=== PATIENT | female | born 1945 | race Two or more races ===

== ENCOUNTER 2020-03-11 13:35 | Outpatient (CLI) | payer MEDICARE, OTHER ==
[2020-03-11] MEDS ORDERED: FURO40TA5 PO (15:57)
[2020-03-11] MEDS ORDERED: INSU100V SQ (15:57)
[2020-03-11] MEDS ORDERED: LOSA100T31 PO (15:57)
[2020-03-11] MEDS ORDERED: AMLO5TAB9 PO (15:57)
[2020-03-11] MEDS ORDERED: NPH,100V SQ ×2 (15:57)
[2020-03-11] MEDS ORDERED: ASPI-1169 PO (15:57)
[2020-03-17] MEDS ORDERED: CEFT2PIG IV (11:50)
== END 2020-03-11 23:59 | disposition home or self-care (01) ==
LOC: WOU 13:35
PROVIDERS: ATTEND Podiatrist Foot & Ankle Surgery
DX: E11.621 Type 2 diabetes mellitus with foot ulcer (principal); L97.513 Non-pressure chronic ulcer of other part of right foot with necrosis of muscle; E11.42 Type 2 diabetes mellitus with diabetic polyneuropathy; E11.51 Type 2 diabetes mellitus with diabetic peripheral angiopathy without gangrene; E11.69 Type 2 diabetes mellitus with other specified complication; M86.171 Other acute osteomyelitis, right ankle and foot; Z79.4 Long term (current) use of insulin; Z79.82 Long term (current) use of aspirin
CPT/HCPCS: 11043

== ENCOUNTER 2020-03-11 15:07 | Inpatient (IN) | payer MEDICARE, OTHER ==
[~2020-03-11] VITALS: Ht 154.9 cm; Wt 62.6 kg
[2020-03-11] MEDS ORDERED: VANCOMYCIN 1 GM in IV D5W 250 ML IV ONE (15:30)
[2020-03-11] MEDS ORDERED: PIPERACILLIN /TAZOBACTAM 3.375 G in IV D5W 50 ML IV ONE (15:30)
--- NOTE | 2020-03-11 15:36 | NUR ---
line started on r ac g20, blood and cultures drawn from line and sent to lab
[2020-03-11 15:41] LABS: BASOPHILS % (AUTO) 0.1 % (0.0-2.0); HEMATOCRIT 30 % (33-45); HEMOGLOBIN 9.9 g/dL (11.5-14.8); LYMPHOCYTES # (AUTO) 1.9 /CMM (0.8-4.8); LYMPHOCYTES % (AUTO) 17.1 % (20.0-44.0); MEAN CORPUSCULAR HGB CONC 33 g/dl (31.0-36.0); MEAN CORPUSCULAR VOLUME 94 fL (82-100); MONOCYTES # (AUTO) 0.8 /CMM (0.1-1.30); MONOCYTES % (AUTO) 6.7 % (2.0-12.0); NEUTROPHILS # (AUTO) 8.4 /CMM (1.8-8.9); NEUTROPHILS % (AUTO) 75.1 % (43.0-81.0); PLATELET COUNT (AUTO) 564 /CMM (150-450); RED BLOOD CELL COUNT(AUTO) 3.21 MIL/uL (4.0-5.2); WHITE BLOOD COUNT (AUTO) 11.2 K/uL (4.3-11.0)
[2020-03-11 15:55] LABS: ALANINE AMINOTRANSFERASE 20 U/L (12-78); ALBUMIN 3.5 g/dL (3.4-5.0); ALKALINE PHOSPHATASE 147 U/L (46-116); ASPARTATE AMINOTRANSFERASE 15 U/L (15-37); BILIRUBIN,TOTAL 0.2 mg/dL (0.2-1.0); CALCIUM, SERUM 9.5 mg/dL (8.5-10.1); CARBON DIOXIDE 24 mmol/L (21-32); CHLORIDE 98 mmol/L (98-107); GLUCOSE 152 mg/dL (74-106); SODIUM SERUM 134 mmol/L (136-145); TOTAL PROTEIN, SERUM 9.7 g/dL (6.4-8.2); UREA NITROGEN, BLOOD 57 mg/dL (7-18)
[2020-03-11] MEDS ORDERED: LOSA100T31 PO (15:57)
[2020-03-11] MEDS ORDERED: NPH,100V SQ ×2 (15:57)
[2020-03-11] MEDS ORDERED: ASPI-1169 PO (15:57)
[2020-03-11] MEDS ORDERED: FURO40TA5 PO (15:57)
[2020-03-11] MEDS ORDERED: AMLO5TAB9 PO (15:57)
[2020-03-11] MEDS ORDERED: INSU100V SQ (15:57)
--- NOTE | 2020-03-11 16:52 | NUR ---
CALLED NURSING SUP FOR M/S BED.
[2020-03-11] MEDS ORDERED: HYDROCODONE/APAP 5/325MG 1 EACH TABLET PO PRN (17:30)
[2020-03-11] MEDS ORDERED: ACETAMINOPHEN 325 MG TABLET PO PRN (17:30)
[2020-03-11] MEDS ORDERED: DEXTROSE 50%-WATER 50 ML DISP.SYRIN IV PRN (17:30)
[2020-03-11] MEDS ORDERED: HYDROCODONE/APAP 10/325MG 1 EA TABLET PO PRN (17:30)
[2020-03-11] MEDS ORDERED: MAG HYDROX/AL HYDROX/SIMETH 30 ML UDC PO PRN (17:30)
[2020-03-11] MEDS ORDERED: ONDANSETRON HCL/PF 4 MG/2 ML VIAL IVP PRN (17:30)
[2020-03-11] MEDS ORDERED: Z GUARD REMEDY 2 OZ OINT TP PRN (17:30)
[2020-03-11] MEDS ORDERED: PIPERACILLIN /TAZOBACTAM 3.375 G in IV D5W 50 ML IV SCH (18:00)
--- NOTE | 2020-03-11 18:12 | NUR ---
REPORT GIVEN TO MS RN FOR CONTINUITY OF CARE
[2020-03-11] MEDS ORDERED: FEE PK DOSING 1 MIN EA MC ONE (18:23)
--- NOTE | 2020-03-11 18:31 | NUR ---
MS FOOD SUPERVISOR NOTES Received Patient via [facility] at this time. Patient ambulatory. Patient in stable condition. VS stable with no acute distress. Breathing even and unlabored on room air with no respiratory distress. Denies pain. No signs and symptoms of pain at this time. 20g PIV on RAC clean, intact, patent and flushing well with NS infusing at 50ml/hr. Safety precautions in place. Bed locked and set to lowest position with side rails x 2 up. All needs rendered at this time. Call light within reach. Will continue to monitor.
[2020-03-11] MEDS: IV NS 0.9% 1,000 ML IV PRN (19:01)
--- NOTE | 2020-03-11 19:10 | NUR ---
MS RN NOTES received pt in bed awake and able to make needs known. pt a/o x3 and Czech speaking. respirations even and unlabored with no s/s of acute distress or sob noted. no complaints of pain at this time. safety measures in place with bed in lowest locked position with side rails up x2. call light within reach. will continue to monitor.
--- NOTE | 2020-03-11 19:10 | NUR ---
MS RN NOTES RECEIVED PT IN BED AWAKE AND ABLE TO MAKE NEEDS KNOWN. PT A/OX Patient resting in bed. A/O x 4, Zambian speaking. Patient in stable condition. VS stable with no acute distress. Breathing even and unlabored on room air with no respiratory distress. Denies pain. No signs and symptoms of pain at this time. 20g PIV on RAC clean, intact, patent and flushing well with NS infusing at 50ml/hr. Safety precautions in place. Bed locked and set to lowest position with side rails x 2 up. All needs rendered at this time. Call light within reach. Will endorse to oncoming shift to complete admission.
--- NOTE | 2020-03-11 19:32 | NUR ---
MS RN CLOSING NOTES Patient resting in bed. A/O x 4, Canadian speaking. Patient in stable condition. VS stable with no acute distress. Breathing even and unlabored on room air with no respiratory distress. Denies pain. No signs and symptoms of pain at this time. 20g PIV on RAC clean, intact, patent and flushing well with NS infusing at 50ml/hr. Safety precautions in place. Bed locked and set to lowest position with side rails x 2 up. All needs rendered at this time. Call light within reach. Will endorse to oncoming shift to complete admission.
[2020-03-11 20:00] VITALS: BP 159/73
--- NOTE | 2020-03-11 20:35 | NUR ---
ms rn notes pt left unit with radiology.
--- NOTE | 2020-03-11 21:20 | NUR ---
ms rn notes pt back from radiology.
[2020-03-11] MEDS: CEFEPIME 1 GM in IV D5W 50 ML IV SCH (21:42)
[2020-03-11] MEDS: INSULIN REGULAR, HUMAN 100 UNIT/ML 3 ML VIAL SQ PRN (22:56)
[2020-03-11] MEDS ORDERED: PIPERACILLIN /TAZOBACTAM 2.25 G in IV D5W 50 ML IV SCH (23:00)
[2020-03-11] MEDS: BLOOD SUGAR DIAGNOSTIC 1 EACH STRIP IN SCH (23:10)
[2020-03-12 06:29] LABS: BASOPHILS % (AUTO) 0.4 % (0.0-2.0); EOSINOPHILS % (AUTO) 2.1 % (0.0-6.0); HEMATOCRIT 27 % (33-45); HEMOGLOBIN 9.3 g/dL (11.5-14.8); LYMPHOCYTES # (AUTO) 2.1 /CMM (0.8-4.8); LYMPHOCYTES % (AUTO) 20.6 % (20.0-44.0); MEAN CORPUSCULAR HGB CONC 34 g/dl (31.0-36.0); MEAN CORPUSCULAR VOLUME 93 fL (82-100); MONOCYTES # (AUTO) 0.9 /CMM (0.1-1.30); NEUTROPHILS # (AUTO) 6.8 /CMM (1.8-8.9); NEUTROPHILS % (AUTO) 67.9 % (43.0-81.0); PLATELET COUNT (AUTO) 523 /CMM (150-450); RED BLOOD CELL COUNT(AUTO) 2.89 MIL/uL (4.0-5.2)
[2020-03-12 06:42] LABS: CALCIUM, SERUM 9.3 mg/dL (8.5-10.1); CARBON DIOXIDE 24 mmol/L (21-32); CHLORIDE 100 mmol/L (98-107); CHOLESTEROL 142 mg/dL (<200); CREATININE 2.2 mg/dL (0.6-1.3); GLUCOSE 87 mg/dL (74-106); HDL CHOLESTEROL 35 mg/dL (40-60); LDL 90 mg/dL (0-99); MAGNESIUM 2.4 mg/dL (1.8-2.4); PHOSPHORUS 4.7 mg/dL (2.5-4.9); POTASSIUM 4.4 mmol/L (3.5-5.1); SODIUM SERUM 136 mmol/L (136-145); THYROID STIMULATING HORMONE 2.703 uIU/mL (0.358-3.74); TRIGLYCERIDES 114 mg/dL (30-150); UREA NITROGEN, BLOOD 53 mg/dL (7-18)
--- NOTE | 2020-03-12 07:36 | NUR ---
MS RN NOTES pt in bed awake and able to make needs known. pt a/o x3 and Yoruba speaking. respirations even and unlabored with no s/s of acute distress or sob noted throuhgout shift. pt kept clean, dry, and comfortable. no complaints of pain at this time. safety measures in place with bed in lowest locked position with side rails up x2. call light within reach. will endorse to oncoming nurse for cecy.
[2020-03-12] MEDS: BLOOD SUGAR DIAGNOSTIC 1 EACH STRIP IN SCH ×4 (07:46→22:35)
--- NOTE | 2020-03-12 08:00 | NUR ---
MS RN- OPENING NOTES RECEIVED PATIENT FROM MATRIX PLATER NURSE IN BED, AWAKE, CONSCIOUS, COOPERATIVE, AMBULATORY, NO SIGNS OR RESPIRATORY DISTRESS, IVF AT RIGHT AC NS AT 50 ML/HR INGUSING WELL, NO SIGNS OF INFILTRATION AND REDNESS. SKIN INTEGRITY IS INTACT.
[2020-03-12 08:07] VITALS: BP 108/60
[2020-03-12] MEDS: ASPIRIN 81 MG TAB.CHEW PO SCH (09:08)
[2020-03-12] MEDS: AMLODIPINE BESYLATE 5 MG TABLET PO SCH (09:11)
[2020-03-12] MEDS: LOSARTAN POTASSIUM 50 MG TABLET PO SCH (09:12)
[2020-03-12 16:00] VITALS: BP 136/70
[2020-03-12] MEDS: INSULIN REGULAR, HUMAN 100 UNIT/ML 3 ML VIAL SQ PRN ×2 (16:50→22:36)
[2020-03-12] MEDS: VANCOMYCIN 0.75 GM in IV D5W 250 ML IV SCH (18:21)
--- NOTE | 2020-03-12 19:14 | NUR ---
MS RN- CLOSING NOTES ENDORSED PATIENT TO ENGINEER OPERATIONS AND MAINTENANCE NURSE IN BED, AWAKE, CONSCIOUS, COOPERATIVE, AMBULATORY, IVF RIGHT AC 20G NS AT 50ML/HR, INFUSING WELL, NO REDNESS OR INFILTRATION NOTED, NO SIGNS OR RESPIRATORY DISTRESS, DRESSING DONE ON RIGHT BIG TOE, SIDE RAILS UP FOR SAFETY.
[2020-03-12 20:00] VITALS: BP 127/64
[2020-03-12] MEDS: CEFEPIME 1 GM in IV D5W 50 ML IV SCH (21:50)
[2020-03-13] MEDS ORDERED: VANCOMYCIN 500 MG in IV D5W 100 ML IV SCH (04:00)
--- NOTE | 2020-03-13 05:30 | NUR ---
MS RN NOTES LAB CALLED PT BLOOD CX PRELIMINARY CAME BACK GRAM + COCCI IN CLUSTERS. MADE AWARE WITH NO NEW ORDERS. WILL CONTINUE TO MONITOR.
[2020-03-13 05:35] LABS: BASOPHILS % (AUTO) 0.5 % (0.0-2.0); EOSINOPHILS % (AUTO) 3.1 % (0.0-6.0); HEMATOCRIT 26 % (33-45); HEMOGLOBIN 8.7 g/dL (11.5-14.8); LYMPHOCYTES # (AUTO) 1.6 /CMM (0.8-4.8); LYMPHOCYTES % (AUTO) 20.9 % (20.0-44.0); MEAN CORPUSCULAR HGB CONC 34 g/dl (31.0-36.0); MEAN CORPUSCULAR VOLUME 93 fL (82-100); MONOCYTES # (AUTO) 0.6 /CMM (0.1-1.30); MONOCYTES % (AUTO) 7.9 % (2.0-12.0); NEUTROPHILS # (AUTO) 5.1 /CMM (1.8-8.9); NEUTROPHILS % (AUTO) 67.6 % (43.0-81.0); PLATELET COUNT (AUTO) 460 /CMM (150-450); RED BLOOD CELL COUNT(AUTO) 2.75 MIL/uL (4.0-5.2); WHITE BLOOD COUNT (AUTO) 7.6 K/uL (4.3-11.0)
[2020-03-13 05:44] LABS: ALANINE AMINOTRANSFERASE 17 U/L (12-78); ALBUMIN 2.5 g/dL (3.4-5.0); ALKALINE PHOSPHATASE 111 U/L (46-116); ASPARTATE AMINOTRANSFERASE 17 U/L (15-37); BILIRUBIN,TOTAL 0.2 mg/dL (0.2-1.0); CALCIUM, SERUM 8.6 mg/dL (8.5-10.1); CARBON DIOXIDE 23 mmol/L (21-32); CHLORIDE 103 mmol/L (98-107); CREATININE 1.9 mg/dL (0.6-1.3); GLUCOSE 139 mg/dL (74-106); MAGNESIUM 2.3 mg/dL (1.8-2.4); PHOSPHORUS 4.4 mg/dL (2.5-4.9); POTASSIUM 5.1 mmol/L (3.5-5.1); SODIUM SERUM 134 mmol/L (136-145); TOTAL PROTEIN, SERUM 7.7 g/dL (6.4-8.2); UREA NITROGEN, BLOOD 46 mg/dL (7-18)
[2020-03-13 05:45] LABS: CREATINE KINASE, TOTAL 75 U/L (26-192)
[2020-03-13] MEDS: IV NS 0.9% 1,000 ML IV PRN (06:05)
[2020-03-13] MEDS: BLOOD SUGAR DIAGNOSTIC 1 EACH STRIP IN SCH ×4 (07:20→21:59)
--- NOTE | 2020-03-13 07:29 | NUR ---
MS RN NOTES received pt in bed awake and able to make needs known. pt a/o x3 and Indonesian speaking. respirations even and unlabored with no s/s of acute distress or sob noted. no complaints of pain at this time. safety measures in place with bed in lowest locked position with side rails up x2. call light within reach. will continue to monitor. Addendum: 03/13/20 at 0731 by HERNANDO PERKINS RN TIME [id number]
--- NOTE | 2020-03-13 07:30 | NUR ---
MS RN NOTES pt in bed awake and able to make needs known. pt a/o x3 and Greek speaking. respirations even and unlabored with no s/s of acute distress or sob noted throughout shift. pt kept clean, dry, and comfortable. no complaints of pain at this time. safety measures in place with bed in lowest locked position with side rails up x2. call light within reach. will endorse to oncoming nurse for cecy.
[2020-03-13 08:00] VITALS: BP 128/70
--- NOTE | 2020-03-13 08:00 | NUR ---
MS RN- OPENING NOTES RECIEVED PATIENT IN BED, AWAKE, CONSCIOUS, COOPERATIVE, AMBULATORY, BREATHING AT ROOM AIR, NO SIGNS OF RESPIRATORY DISTRESS, IVF RIGHT AC 20G NS AT 50ML/HR, REDNESS AND INFILTRATION NOTED, SIDE RAILS UP FOR SAFETY.
[2020-03-13] MEDS: INSULIN REGULAR, HUMAN 100 UNIT/ML 3 ML VIAL SQ PRN ×4 (08:05→22:00)
[2020-03-13] MEDS: AMLODIPINE BESYLATE 5 MG TABLET PO SCH (09:25)
[2020-03-13] MEDS: ASPIRIN 81 MG TAB.CHEW PO SCH (09:25)
[2020-03-13] MEDS: LOSARTAN POTASSIUM 50 MG TABLET PO SCH (09:25)
--- NOTE | 2020-03-13 11:45 | NUR ---
MS PALMER NOTES RE-INSERTED IV ACCESS AT RIGHT FA #22G. NO REDNESS OR INFILTRATION NOTED. Addendum: 03/13/20 at 1242 by GIANA NY RN RIGHT FOREARM.
[2020-03-13 16:00] VITALS: BP 137/73
[2020-03-13] MEDS: VANCOMYCIN 0.75 GM in IV D5W 250 ML IV SCH (19:36)
--- NOTE | 2020-03-13 19:40 | NUR ---
MS RN - CLOSING NOTES ENDORSED PATIENT IN BED, AWAKE, CONSCIOUS, COOPERATIVE, AMBULATORY, BREATHING IN ROOM AIR, NO SIGNS OF RESPIRATORY DISTRESS, IVF RIGHT FA 20G AT NS 50ML/HR INFUSING WELL, NO SIGNS OF REDNESS AND INFILTRATION.
[2020-03-13 20:00] VITALS: BP 143/70
--- NOTE | 2020-03-13 20:04 | NUR ---
MS RN OPENING NOTES PATIENT RECEIVED RESTING IN BED A/O X 3, TURKMEN SPEAKING. STABLE ON RA WITH BREATHING EVEN AND UNLABORED, NO SOB NOTED. NO SIGNS OF ACUTE DISTRESS. NO COMPLAINTS OF PAIN OR DISCOMFORT AT THE MOMENT. IV LOCATED ON RFA #20 RUNNING NS @ 50 ML/ HR. SAFETY PRECAUTIONS IN PLACE WITH BED IN LOWEST POSITION, CALL LIGHT WITHIN REACH, BREAKS ON, SIDE RAILS UP. WILL CONTINUE TO MONITOR THROUGHOUT THE NIGHT.
[2020-03-13] MEDS: CEFEPIME 1 GM in IV D5W 50 ML IV SCH (21:22)
[2020-03-14] MEDS: IV NS 0.9% 1,000 ML IV PRN (06:28)
[2020-03-14 06:31] LABS: APPEARANCE,URINE CLEAR (CLEAR); BILIRUBIN,URINE NEGATIVE (NEGATIVE); BLOOD, URINE NEGATIVE Ery/uL (NEGATIVE); COLOR,URINE YELLOW (YELLOW); KETONES,URINE NEGATIVE (NEGATIVE); LEUKOCYTE ESTERASE ,URINE NEGATIVE (NEGATIVE); NITRITE, URINE NEGATIVE (NEGATIVE); PROTEIN,URINE NEGATIVE (NEGATIVE); UGLUCOSE 250 MG/DL mg/dL (NEGATIVE); UROBILINOGEN,URINE 0.2 EU/dL (0.2)
[2020-03-14 06:31] LABS: BASOPHILS % (AUTO) 0.2 % (0.0-2.0); EOSINOPHILS % (AUTO) 2.7 % (0.0-6.0); HEMATOCRIT 26 % (33-45); HEMOGLOBIN 8.9 g/dL (11.5-14.8); LYMPHOCYTES # (AUTO) 1.8 /CMM (0.8-4.8); MEAN CORPUSCULAR HGB CONC 34 g/dl (31.0-36.0); MEAN CORPUSCULAR VOLUME 93 fL (82-100); MONOCYTES # (AUTO) 0.6 /CMM (0.1-1.30); MONOCYTES % (AUTO) 7.6 % (2.0-12.0); NEUTROPHILS # (AUTO) 5.2 /CMM (1.8-8.9); NEUTROPHILS % (AUTO) 66.5 % (43.0-81.0); PLATELET COUNT (AUTO) 528 /CMM (150-450); RED BLOOD CELL COUNT(AUTO) 2.82 MIL/uL (4.0-5.2); WHITE BLOOD COUNT (AUTO) 7.8 K/uL (4.3-11.0)
[2020-03-14] MEDS: BLOOD SUGAR DIAGNOSTIC 1 EACH STRIP IN SCH ×4 (06:32→21:26)
--- NOTE | 2020-03-14 06:32 | NUR ---
MS RN NOTES PATIENT FSBS 153, NO INSULIN ADMINISTERED. PATIENT NPO SINCE MIDNIGHT. WILL CONTINUE TO MONITOR.
[2020-03-14 06:39] LABS: BACTERIA,URINE Rare /HPF (None Seen); RBC,URINE 0-2 /HPF (0-2); SQUAMOUS EPITHELIAL CELL,UR Few /HPF (None Seen); WBC,URINE 0-2 /HPF (0-3)
[2020-03-14 06:44] LABS: CARBON DIOXIDE 21 mmol/L (21-32); CHLORIDE 104 mmol/L (98-107); CREATININE 1.5 mg/dL (0.6-1.3); GLUCOSE 157 mg/dL (74-106); POTASSIUM 4.6 mmol/L (3.5-5.1); SODIUM SERUM 136 mmol/L (136-145); UREA NITROGEN, BLOOD 29 mg/dL (7-18)
--- NOTE | 2020-03-14 06:47 | NUR ---
MS RN CLOSING NOTES PATIENT RESTING IN BED A/O X 3, MOHAWK SPEAKING. STABLE ON RA WITH BREATHING EVEN AND UNLABORED, NO SOB NOTED. NO SIGNS OF ACUTE DISTRESS. NO COMPLAINTS OF PAIN OR DISCOMFORT AT THE MOMENT. IV LOCATED ON RFA #20 RUNNING NS @ 50 ML/ HR. SAFETY PRECAUTIONS IN PLACE WITH BED IN LOWEST POSITION, CALL LIGHT WITHIN REACH, BREAKS ON, SIDE RAILS UP. ALL NEEDS ATTENDED TO. WILL ENDORSE TO ONCOMING SHIFT ABOUT GLADYS.
[2020-03-14 06:53] LABS: FERRITIN 216 ng/mL (8-388)
[2020-03-14 07:00] LABS: IRON, SERUM 43 ug/dl (50-175); TOTAL IRON BINDING CAPACITY 206 ug/dl (250-450)
[2020-03-14] MEDS ORDERED: FENTANYL PF 100MCG/2ML AMPUL ONE (07:08)
[2020-03-14 07:13] LABS: EOSINOPHIL,URINE None Seen
[2020-03-14 07:15] LABS: CREATININE, URINE 26.5 MG/DL (30.0-125.0); URINE TOTAL PROTEIN 24.2 mg/dL (0-11.9)
[2020-03-14 08:00] VITALS: BP 158/85
--- NOTE | 2020-03-14 08:00 | NUR ---
m/s bolt loader: initial assessment received pt in bed awake, japanese speaking only. a/o4. for right toe wound debridement today. inserted new iv to right wrist#20. pt remains npo. iv fluids infusing well. instructed to call for assistance. will continue to monitor.
--- NOTE | 2020-03-14 08:34 | NUR ---
m/s town justice: notes picked up via bed accompanied by 2 o.r. staff with chart.
[2020-03-14] MEDS ORDERED: LIDOCAINE HCL/PF 1% 30 ML SDV ONE (08:48)
[2020-03-14] MEDS ORDERED: BUPIVACAINE 0.5 % PF 150 MG/30 ML VIAL ONE (08:48)
--- NOTE | 2020-03-14 10:27 | NUR ---
WOUND CARE CONSULT WOUND CARE RECEIVED CONSULT FOR WOUNDS. WOUND CARE WILL DEFER CONSULT AND ALL TREATMENT PLANS TO DR AZ DOWELL HE IS CURRENTLY FOLLOWING THIS PATIENT. PATIENT WITH GRACIA AT 21, WILL SEE PRN.
[2020-03-14 10:35] VITALS: BP 148/82
--- NOTE | 2020-03-14 10:35 | NUR ---
m/s sleeve presser operator: notes received pt from recovery room with dx: s/p debridement of right big toe with wound closure and bone biopsy. surgical dressing intact, clean, and dry. orders carried out and acknowledged. instructed pt right lower extremity will be non weight bearing status and pt for p.t. and o.t. eval and tx with wallisian staff translating. pt verbalized understanding. afebrile. tachycardic at this time. no c/o pain or any discomfort. instructed to call for assistance. Addendum: 03/14/20 at 1553 by CHANDA DEWITT LVN correction on above charting: s/p right foot wound debridement of wound closure and bone biopsy.
[2020-03-14] MEDS: LOSARTAN POTASSIUM 50 MG TABLET PO SCH (11:12)
[2020-03-14] MEDS: AMLODIPINE BESYLATE 5 MG TABLET PO SCH (11:12)
[2020-03-14] MEDS: ASPIRIN 81 MG TAB.CHEW PO SCH (11:12)
[2020-03-14] MEDS: INSULIN REGULAR, HUMAN 100 UNIT/ML 3 ML VIAL SQ PRN ×3 (11:38→22:54)
--- NOTE | 2020-03-14 14:00 | NUR ---
m/s residential worker: notes in bed awake, watching tv. right foot surgical dressing remains intact, clean, and dry. arturo heels elevated with pillow. will continue to monitor.
[2020-03-14 16:00] VITALS: BP 137/79
--- NOTE | 2020-03-14 16:00 | NUR ---
m/s physical integration practitioner: notes resting comfortable in bed. arturo heels offload with pillow. dressing to right foot intact, clean, and dry. instructed to call for assistance. will continue to monitor.
[2020-03-14] MEDS: VANCOMYCIN 0.75 GM in IV D5W 250 ML IV SCH (17:45)
--- NOTE | 2020-03-14 18:00 | NUR ---
m/s scrummaster: notes in bed resting comfortable. no distress noted. surgical dressing to right foot intact, clean, and dry. elevated with pillow. iv antibiotic infusing well. needs attended. will continue to monitor.
--- NOTE | 2020-03-14 19:10 | NUR ---
m/s nurse healthcare manager: notes report given to allison (nimisha) for continuity of care.
--- NOTE | 2020-03-14 19:40 | NUR ---
MS RN NOTE: PATIENT RESTING IN BED, NO ACUTE DISTRESS NOTED. BREATHING EVEN AND UNLABORED, NO SOB NOTED. IV TO RIGHT WRIST IN PLACE. DRESSING TO RIGHT FOOT IN PLACE, NO BLEEDING NOTED. BED LOCKED AND IN LOWEST POSITION, CALL LIGHT IN REACH WILL CONTINUE TO MONITOR.
[2020-03-14 20:00] VITALS: BP 145/72
[2020-03-14] MEDS: CEFEPIME 1 GM in IV D5W 50 ML IV SCH (21:26)
--- NOTE | 2020-03-14 22:55 | NUR ---
MS RN NOTE: PATIENT BLOOD SUGAR LEVEL 247MG/DL, PATIENT TO RECEIVE 4 UNITS OF INSULIN PER SLIDING SCALE. NO S/S OF HYPER/HYPOGLYCEMIA NOTED. WILL CONTINUE TO MONITOR.
[2020-03-15 04:06] LABS: *SPE A/G RATIO 0.6 (0.7-1.7); *SPE ALBUMIN 2.6 g/dL (2.9-4.4); *SPE ALPHA-1-GLOBULIN 0.3 g/dL (0.0-0.4); *SPE ALPHA-2-GLOBULIN 1.1 g/dL (0.4-1.0); *SPE BETA GLOBULIN 1.2 g/dL (0.7-1.3); *SPE GLOBULIN, TOTAL 4.4 g/dL (2.2-3.9); *SPE M-SPIKE Not Observed g/dL (Not Observed); *SPEGAMMA GLOBULIN 1.7 g/dL (0.4-1.8)
--- NOTE | 2020-03-15 06:20 | NUR ---
MS RN NOTE: PATIENT RESTING IN BED, NO ACUTE DISTRESS NOTED. BREATHING EVEN AND UNLABORED, NO SOB NOTED. IV TO RIGHT WRIST IN PLACE. DRESSING TO RIGHT FOOT IN PLACE, NO BLEEDING NOTED. PATIENT BLOOD SUGAR LEVEL 160MG/DL, PATIENT TO RECEIVE 2 UNITS PER SLIDING SCALE. NO S/S HYPER/HYPOGLYCEMIA NOTED. BED LOCKED AND IN LOWEST POSITION, CALL LIGHT IN REACH, WILL ENDORSE TO DAY NURSE TO CONTINUE WITH PLAN OF CARE.
[2020-03-15] MEDS: INSULIN REGULAR, HUMAN 100 UNIT/ML 3 ML VIAL SQ PRN ×4 (06:39→21:36)
[2020-03-15] MEDS: BLOOD SUGAR DIAGNOSTIC 1 EACH STRIP IN SCH ×4 (06:39→21:29)
[2020-03-15 07:00] LABS: CALCIUM, SERUM 8.4 mg/dL (8.5-10.1); CREATININE 1.2 mg/dL (0.6-1.3); POTASSIUM 4.7 mmol/L (3.5-5.1)
[2020-03-15 07:06] LABS: PTH, INTACT 49 pg/mL (15-65)
--- NOTE | 2020-03-15 07:30 | NUR ---
RN MS NOTES PT IN BED, AWAKE, ALERT AND ORIENTED, NO COMPLAINT OF PAIN, NOT IN DISTRESS, CALL LIGHT WITHIN REACH, NEEDS ATTENDED, IV FLUIDS INFUSING WELL, KEPT COMFORTABLE IN BED.
[2020-03-15 08:05] VITALS: BP 145/72
[2020-03-15] MEDS: ASPIRIN 81 MG TAB.CHEW PO SCH (08:31)
[2020-03-15] MEDS: LOSARTAN POTASSIUM 50 MG TABLET PO SCH (08:32)
[2020-03-15] MEDS: AMLODIPINE BESYLATE 5 MG TABLET PO SCH (08:32)
--- NOTE | 2020-03-15 13:00 | NUR ---
RN MS NOTES PT IN BED, AWAKE, ALERT AND ORIENTED, NO COMPLAINT OF PAIN, RESPIRATIONS NORMAL, SEEN BY DR. BERNARDO, TREATMENT AND DRESSING CHANGE DONE BY MD TO RIGHT TOE, TOLERATED PROCEDURE WELL, SEEN BY PHYSICAL THERAPIST, ASSISTED PT TO BATHROOM NEEDED.
[2020-03-15 16:08] VITALS: BP 129/66
[2020-03-15] MEDS: IV NS 0.9% 1,000 ML IV PRN (16:36)
[2020-03-15] MEDS: VANCOMYCIN 0.75 GM in IV D5W 250 ML IV SCH (18:28)
--- NOTE | 2020-03-15 18:36 | NUR ---
RN MS NOTES PT IN BED, AWAKE, ALERT AND ORIENTED, NO COMPLAINT OF PAIN, NOT IN DISTRESS, TALKING ON THE PHONE, SEEN BY DR. BERNARDO, RIGHT BIG TOE TREATMENT AND DRESSING CHANGE DONE BY MD, TOLERATED WELL, PM MEDS GIVEN ORDERED, ALL NEEDS ATTENDED.
--- NOTE | 2020-03-15 19:25 | NUR ---
ms linden initial notes received report from am nurse and seen pt in bed awake and alert on her phone talking to some one . no signs of any distress noted. she wants only medicine to help her to have bowel movement. i offered MOM and she states ok. kept her comfortable at all times. will continue monitoring.
[2020-03-15 20:00] VITALS: BP 156/80
[2020-03-15] MEDS: MAGNESIUM HYDROXIDE 30 ML UDC PO PRN (20:23)
--- NOTE | 2020-03-15 21:39 | NUR ---
surgical garment assembler notes blood sugar 193, 3units of insulin given felix SQ as ordered on different site. no signs of hypo glycemia noted. snacks offered but pt refused because she wants have bowel movement first. Pt still on IVF NS at 50ml/hr infusing at this time. will continue monitoring.
--- NOTE | 2020-03-15 22:55 | NUR ---
floor finisher closing notes pt resting with eyes closed at this time. all due meds given and all needs met. IVF NS at 50ml/hr infusing at this time. Kept her warm and comfortable at all times. Place call light at reach. Endorse to am nurse for continuity of care. Addendum: 03/15/20 at 2301 by PETAR BOOTH LVN endorse to another nurse not am nurse for continuity of care.
--- NOTE | 2020-03-16 04:53 | NUR ---
ENDING NOTES: SLEPT THRU THE NIGHT.,.HER MAIN CONCERN WAS SHE NNEEDS TO HAVE A BM. mom GIVEN ERALY IN THE EVENING ..BM PENDING. RIGHT FOOT DRESSING ACEWRAP CDI DENIES PAIN KEPT ELEVATED ON PILLOWS.
[2020-03-16] MEDS: BLOOD SUGAR DIAGNOSTIC 1 EACH STRIP IN SCH ×4 (06:02→21:51)
[2020-03-16] MEDS: INSULIN REGULAR, HUMAN 100 UNIT/ML 3 ML VIAL SQ PRN ×4 (06:05→21:58)
[2020-03-16 06:31] LABS: BASOPHILS # (AUTO) 0.1 /CMM (0.0-0.2); BASOPHILS % (AUTO) 0.7 % (0.0-2.0); EOSINOPHILS % (AUTO) 3.3 % (0.0-6.0); HEMATOCRIT 27 % (33-45); HEMOGLOBIN 9.2 g/dL (11.5-14.8); LYMPHOCYTES # (AUTO) 1.7 /CMM (0.8-4.8); LYMPHOCYTES % (AUTO) 21.3 % (20.0-44.0); MEAN CORPUSCULAR HGB CONC 34 g/dl (31.0-36.0); MEAN CORPUSCULAR VOLUME 93 fL (82-100); MONOCYTES # (AUTO) 0.5 /CMM (0.1-1.30); MONOCYTES % (AUTO) 6.5 % (2.0-12.0); NEUTROPHILS # (AUTO) 5.4 /CMM (1.8-8.9); NEUTROPHILS % (AUTO) 68.2 % (43.0-81.0); PLATELET COUNT (AUTO) 545 /CMM (150-450); RED BLOOD CELL COUNT(AUTO) 2.94 MIL/uL (4.0-5.2)
--- NOTE | 2020-03-16 07:05 | NUR ---
MS RN OPENING NOTES RECEIVED PT IN BED AWAKE AT THIS TIME WATCHING TV. AOX4. BREATHING IS EVEN AND UNLABORED. PT SATURATING WELL AT 96% ON RA. PT APPEARS COMFORTABLE WITH NO S/S OF ANY ACUTE DISTRESS. IV ACCESS ON LFA G#22, INTACT AND PATENT. PT DENIES PAIN AT THIS TIME. PT ABLE TO VERBALIZE NEEDS, PT UNDERSTANDS TO CALL FOR ASSISTANCE. SAFETY PRECAUTIONS IN PLACE. BED IN LOWEST LOCKED POSITION, SIDE RAILS UP X 2, CALL LIGHT WITHIN REACH. WILL CONTINUE TO MONITOR Addendum: 03/16/20 at 0829 by GLEN LYNN RN MS RN OPENING NOTES RECEIVED PT IN BED AWAKE AT THIS TIME WATCHING TV. AOX4. BREATHING IS EVEN AND UNLABORED. PT SATURATING WELL AT 96% ON RA. PT APPEARS COMFORTABLE WITH NO S/S OF ANY ACUTE DISTRESS. IV ACCESS ON RIGHT WRIST G#20, INTACT AND PATENT. PT DENIES PAIN AT THIS TIME. PT ABLE TO VERBALIZE NEEDS, PT UNDERSTANDS TO CALL FOR ASSISTANCE. SAFETY PRECAUTIONS IN PLACE. BED IN LOWEST LOCKED POSITION, SIDE RAILS UP X 2, CALL LIGHT WITHIN REACH. WILL CONTINUE TO MONITOR
[2020-03-16 07:15] LABS: CREATININE 1.1 mg/dL (0.6-1.3)
[2020-03-16 08:00] VITALS: BP 100/57
[2020-03-16] MEDS: LOSARTAN POTASSIUM 50 MG TABLET PO SCH (09:00)
[2020-03-16] MEDS: AMLODIPINE BESYLATE 5 MG TABLET PO SCH (09:00)
[2020-03-16] MEDS: ASPIRIN 81 MG TAB.CHEW PO SCH (09:28)
[2020-03-16] MEDS: MAGNESIUM HYDROXIDE 30 ML UDC PO PRN (09:53)
[2020-03-16 16:00] VITALS: BP 140/81
[2020-03-16] MEDS: DOCUSATE SODIUM 100 MG CAPSULE PO SCH (17:28)
[2020-03-16] MEDS: CEFTRIAXONE 2 G in IV D5W 100 ML IV SCH (17:59)
--- NOTE | 2020-03-16 19:07 | NUR ---
MS RN CLOSING NOTES PT IN BED, AWAKE, WATCHING TV AT THIS TIME, HOB ELEVATED, AOX4, KOREAN SPEAKING. PT KEPT CLEAN AND DRY, ALL NEEDS PROVIDED ANTICIPATED. SAFETY PRECAUTIONS IN PLACE. BED IN LOCKED LOWEST POSITION, SIDE RAILS UP X2, CALL LIGHT WITHIN REACH. WILL ENDORSE TO COMPUTER TAPE LIBRARIAN NURSE FOR GLADYS
[2020-03-16 20:00] VITALS: BP 153/77
[2020-03-16 20:29] VITALS: BP 153/77
--- NOTE | 2020-03-16 20:30 | NUR ---
RECEIVED IN BED ALERT AND ORIENTATED X4 SPEECH CLEAR SPEAKS AZERI WITH SOME UNDERSTANDING OF OCCITAN C/O CONSTIPATION. NOTED GIVEN COLACE AND MOM THIS AM. BS + ALL QUADS PASSING FLATUS+ RIGHT FOOT DRESSING CDI ACEWARP RIGHT FOOT
[2020-03-16] MEDS ORDERED: LACTULOSE 10 G/15 ML UDC (PYXIS) PO ONE (22:00)
[2020-03-16] MEDS ORDERED: SORBITOL SOLUTION 30 ML PO ONE (22:00)
--- NOTE | 2020-03-17 06:08 | NUR ---
ENDING NOLTES:l C/O CONSTIPATION ORDER FOR LACTOSE AND SORBITOL GIVEN NO RESULTS. AMBULATES TO THE BATHROOM WITH ASSIST AND WALKER
[2020-03-17] MEDS: BLOOD SUGAR DIAGNOSTIC 1 EACH STRIP IN SCH ×3 (06:28→17:05)
[2020-03-17] MEDS: INSULIN REGULAR, HUMAN 100 UNIT/ML 3 ML VIAL SQ PRN ×3 (06:36→17:30)
[2020-03-17 07:17] LABS: BASOPHILS % (AUTO) 0.3 % (0.0-2.0); EOSINOPHILS % (AUTO) 2.9 % (0.0-6.0); HEMATOCRIT 29 % (33-45); HEMOGLOBIN 9.8 g/dL (11.5-14.8); LYMPHOCYTES # (AUTO) 1.6 /CMM (0.8-4.8); LYMPHOCYTES % (AUTO) 21.1 % (20.0-44.0); MEAN CORPUSCULAR HGB CONC 34 g/dl (31.0-36.0); MEAN CORPUSCULAR VOLUME 93 fL (82-100); MONOCYTES # (AUTO) 0.5 /CMM (0.1-1.30); MONOCYTES % (AUTO) 7.2 % (2.0-12.0); NEUTROPHILS # (AUTO) 5.1 /CMM (1.8-8.9); NEUTROPHILS % (AUTO) 68.5 % (43.0-81.0); PLATELET COUNT (AUTO) 558 /CMM (150-450); RED BLOOD CELL COUNT(AUTO) 3.08 MIL/uL (4.0-5.2); WHITE BLOOD COUNT (AUTO) 7.4 K/uL (4.3-11.0)
[2020-03-17 07:31] LABS: CALCIUM, SERUM 9.2 mg/dL (8.5-10.1); CARBON DIOXIDE 25 mmol/L (21-32); CHLORIDE 102 mmol/L (98-107); CREATININE 1.4 mg/dL (0.6-1.3); GLUCOSE 228 mg/dL (74-106); POTASSIUM 4.3 mmol/L (3.5-5.1); SODIUM SERUM 138 mmol/L (136-145); UREA NITROGEN, BLOOD 16 mg/dL (7-18)
[2020-03-17 08:00] VITALS: BP_SYST 152; BP_SYST 98; BP_DIAS 56; BP_DIAS 80
[2020-03-17] MEDS ORDERED: BISACODYL SUPP (10 MG) 10 MG/SUPP.RECT SUPP.RECT RC PRN (08:30)
[2020-03-17] MEDS: LOSARTAN POTASSIUM 50 MG TABLET PO SCH (09:10)
[2020-03-17] MEDS: ASPIRIN 81 MG TAB.CHEW PO SCH (09:10)
[2020-03-17] MEDS: DOCUSATE SODIUM 100 MG CAPSULE PO SCH ×2 (09:10→17:05)
[2020-03-17] MEDS: MAGNESIUM HYDROXIDE 30 ML UDC PO PRN (09:10)
[2020-03-17] MEDS: AMLODIPINE BESYLATE 5 MG TABLET PO SCH (09:10)
[2020-03-17] MEDS ORDERED: CEFT2PIG IV (11:50)
--- NOTE | 2020-03-17 15:00 | NUR ---
Constipation resolved with large BM
[2020-03-17 16:00] VITALS: BP 151/76
[2020-03-17] MEDS: CEFTRIAXONE 2 G in IV D5W 100 ML IV SCH (17:05)
--- NOTE | 2020-03-17 18:30 | NUR ---
Patient cleared for d/c to home with home health for continues antibiotic therapy and wound care. Patient a/o x 4 and Ecuadorean speaking only.D/C instructions given to pt's daughter and she verbalized understanding. Patient signed valuable form and all belongings with the patient. Wound dressing intact and patent. Patient has CHANELLE midline, dressing intact and patent , line flushing well. Patient refused d/c picture of the wound. Patient safely transferred to [facility] via wheelchair accompanied by GABRIELA Sesay. Patient picked up by daughter
== END 2020-03-17 18:45 | disposition home health service (06) | DRG 629 ==
LOC: ER 15:10 → MED 18:15
PROVIDERS: ADMIT Nurse Practitioner Acute Care; ATTEND Nurse Practitioner Acute Care
PROC: 0QBQ0ZZ Excision of Right Toe Phalanx, Open Approach (ICD-10-PCS; principal; 2020-03-14)
PROC: 05HY33Z Insertion of Infusion Device into Upper Vein, Percutaneous Approach (ICD-10-PCS; 2020-03-16)
DX: E11.69 Type 2 diabetes mellitus with other specified complication (principal); M86.9 Osteomyelitis, unspecified; L03.115 Cellulitis of right lower limb; E87.1 Hypo-osmolality and hyponatremia; L97.516 Non-pressure chronic ulcer of other part of right foot with bone involvement without evidence of necrosis; R78.81 Bacteremia; N17.0 Acute kidney failure with tubular necrosis; N18.4 Chronic kidney disease, stage 4 (severe); E11.621 Type 2 diabetes mellitus with foot ulcer; E11.22 Type 2 diabetes mellitus with diabetic chronic kidney disease; I12.9 Hypertensive chronic kidney disease with stage 1 through stage 4 chronic kidney disease, or unspecified chronic kidney disease; B96.89 Other specified bacterial agents as the cause of diseases classified elsewhere; Z79.82 Long term (current) use of aspirin; Z79.4 Long term (current) use of insulin; Z79.899 Other long term (current) drug therapy; D47.3 Essential (hemorrhagic) thrombocythemia; D63.8 Anemia in other chronic diseases classified elsewhere; E11.42 Type 2 diabetes mellitus with diabetic polyneuropathy; E11.622 Type 2 diabetes mellitus with other skin ulcer; E11.65 Type 2 diabetes mellitus with hyperglycemia; E86.1 Hypovolemia; Z83.3 Family history of diabetes mellitus; Z90.49 Acquired absence of other specified parts of digestive tract; E21.1 Secondary hyperparathyroidism, not elsewhere classified; B95.8 Unspecified staphylococcus as the cause of diseases classified elsewhere
CPT/HCPCS: 36415; 73660-TC; 73718-TC; 76770-TC; 80048-TC; 80053-TC; 80061-TC; 80076-TC; 80202-TC; 81000-TC; 82550-TC; 82570-TC; 82728-TC; 82962-TC; 83540-TC; 83605-TC; 83735-TC; 83970; 84100-TC; 84155; 84155-TC; 84165; 84300-TC; 84443-TC; 84484-TC; 85025-TC; 85652-TC; 85730-TC; 86140-TC; 86850-TC; 87040-TC; 87070-TC; 87081-TC; 87086-TC; 88305-TC; 88311-TC; 88312-TC; 97116-TC; 97530-TC; 97535-TC; A6403; A6407; G0378; J0690; J0692; J0696; J1815; J2405; J2543; J2704; J2765; J3010; J3370; J3490; J7030; J7060

== ENCOUNTER 2020-03-25 13:47 | Outpatient (CLI) | payer MEDICARE, OTHER ==
[~2020-03-25 13:47] MED LIST: AMLO5TAB9 PO; ASPI-1169 PO; CEFT2PIG IV; FURO40TA5 PO; INSU100V SQ; LOSA100T31 PO; NPH,100V SQ
== END 2020-03-25 23:59 | disposition home or self-care (01) ==
LOC: WOU 13:47
PROVIDERS: ATTEND Podiatrist Foot & Ankle Surgery
DX: E11.621 Type 2 diabetes mellitus with foot ulcer (principal); L97.516 Non-pressure chronic ulcer of other part of right foot with bone involvement without evidence of necrosis; E11.51 Type 2 diabetes mellitus with diabetic peripheral angiopathy without gangrene; E11.42 Type 2 diabetes mellitus with diabetic polyneuropathy; E11.69 Type 2 diabetes mellitus with other specified complication; M86.171 Other acute osteomyelitis, right ankle and foot; Z79.4 Long term (current) use of insulin; M24.574 Contracture, right foot; Z79.82 Long term (current) use of aspirin
CPT/HCPCS: 11044; A6407; 11043

== ENCOUNTER 2020-03-30 09:00 | Outpatient (CLI) | payer MEDICARE, OTHER | END 2020-03-30 23:59 | disposition home or self-care (01) | LOC: WOU 09:00 | PROVIDERS: ATTEND Specialist | DX: E11.69 Type 2 diabetes mellitus with other specified complication (principal); E11.51 Type 2 diabetes mellitus with diabetic peripheral angiopathy without gangrene; E11.42 Type 2 diabetes mellitus with diabetic polyneuropathy; M86.471 Chronic osteomyelitis with draining sinus, right ankle and foot; E11.621 Type 2 diabetes mellitus with foot ulcer; L97.516 Non-pressure chronic ulcer of other part of right foot with bone involvement without evidence of necrosis; Z79.4 Long term (current) use of insulin; Z79.82 Long term (current) use of aspirin | CPT/HCPCS: 71046; A6407; G0463 ==

== ENCOUNTER 2020-04-01 03:30 | Outpatient (CLI) | payer MEDICARE, OTHER | END 2020-04-01 23:59 | disposition home or self-care (01) | LOC: WOU 03:30 | PROVIDERS: ATTEND Podiatrist Foot & Ankle Surgery | DX: E11.621 Type 2 diabetes mellitus with foot ulcer (principal); L97.516 Non-pressure chronic ulcer of other part of right foot with bone involvement without evidence of necrosis; E11.42 Type 2 diabetes mellitus with diabetic polyneuropathy; E11.51 Type 2 diabetes mellitus with diabetic peripheral angiopathy without gangrene; E11.69 Type 2 diabetes mellitus with other specified complication; M86.471 Chronic osteomyelitis with draining sinus, right ankle and foot; Z79.4 Long term (current) use of insulin; M24.574 Contracture, right foot; Z79.82 Long term (current) use of aspirin | CPT/HCPCS: 11043; A6407 ==

== ENCOUNTER 2020-04-08 14:30 | Outpatient (CLI) | payer MEDICARE, OTHER | END 2020-04-08 23:59 | disposition home or self-care (01) | LOC: WOU 14:30 | PROVIDERS: ATTEND Podiatrist Foot & Ankle Surgery | DX: E11.621 Type 2 diabetes mellitus with foot ulcer (principal); L97.516 Non-pressure chronic ulcer of other part of right foot with bone involvement without evidence of necrosis; E11.42 Type 2 diabetes mellitus with diabetic polyneuropathy; E11.51 Type 2 diabetes mellitus with diabetic peripheral angiopathy without gangrene; E11.69 Type 2 diabetes mellitus with other specified complication; M86.471 Chronic osteomyelitis with draining sinus, right ankle and foot; Z79.4 Long term (current) use of insulin; M24.574 Contracture, right foot; Z79.82 Long term (current) use of aspirin | CPT/HCPCS: 11044; A6407 ==

== ENCOUNTER 2020-04-12 15:30 | Outpatient (CLI) | payer MEDICARE, OTHER | END 2020-04-12 23:59 | disposition home or self-care (01) | LOC: VASLAB 15:30 | PROVIDERS: ATTEND Surgery Vascular Surgery | DX: M79.89 Other specified soft tissue disorders (principal) | CPT/HCPCS: A6407; G0463 ==

== ENCOUNTER 2020-04-15 15:10 | Outpatient (CLI) | payer MEDICARE, OTHER | END 2020-04-15 23:59 | disposition home health service (06) | LOC: WOU 15:10 | PROVIDERS: ATTEND Podiatrist Foot & Ankle Surgery | DX: E11.621 Type 2 diabetes mellitus with foot ulcer (principal); L97.516 Non-pressure chronic ulcer of other part of right foot with bone involvement without evidence of necrosis; E11.51 Type 2 diabetes mellitus with diabetic peripheral angiopathy without gangrene; E11.42 Type 2 diabetes mellitus with diabetic polyneuropathy; E11.69 Type 2 diabetes mellitus with other specified complication; M86.471 Chronic osteomyelitis with draining sinus, right ankle and foot; Z79.4 Long term (current) use of insulin; M24.574 Contracture, right foot; Z79.82 Long term (current) use of aspirin | CPT/HCPCS: 11043; A6407 ==

== ENCOUNTER 2020-04-21 11:47 | Outpatient (CLI) | payer MEDICARE, OTHER ==
[2020-06-12] MEDS ORDERED: PANT40TA2 PO (15:38)
== END 2020-04-21 23:59 | disposition home or self-care (01) ==
LOC: MSC 11:47
PROVIDERS: ATTEND Internal Medicine
DX: M86.172 Other acute osteomyelitis, left ankle and foot (principal); S91.105D Unspecified open wound of left lesser toe(s) without damage to nail, subsequent encounter; M85.80 Other specified disorders of bone density and structure, unspecified site; E11.22 Type 2 diabetes mellitus with diabetic chronic kidney disease; I12.9 Hypertensive chronic kidney disease with stage 1 through stage 4 chronic kidney disease, or unspecified chronic kidney disease; N18.9 Chronic kidney disease, unspecified; Z79.4 Long term (current) use of insulin; Z86.79 Personal history of other diseases of the circulatory system; R55 Syncope and collapse; G89.29 Other chronic pain; M54.9 Dorsalgia, unspecified; D64.9 Anemia, unspecified; Z79.899 Other long term (current) drug therapy

== ENCOUNTER 2020-04-22 15:20 | Outpatient (CLI) | payer MEDICARE, OTHER | END 2020-04-22 23:59 | disposition home health service (06) | LOC: WOU 15:20 | PROVIDERS: ATTEND Podiatrist Foot & Ankle Surgery | DX: E11.621 Type 2 diabetes mellitus with foot ulcer (principal); L97.515 Non-pressure chronic ulcer of other part of right foot with muscle involvement without evidence of necrosis; E11.42 Type 2 diabetes mellitus with diabetic polyneuropathy; E11.51 Type 2 diabetes mellitus with diabetic peripheral angiopathy without gangrene; E11.69 Type 2 diabetes mellitus with other specified complication; M86.471 Chronic osteomyelitis with draining sinus, right ankle and foot; M24.574 Contracture, right foot; Z79.4 Long term (current) use of insulin; Z79.82 Long term (current) use of aspirin | CPT/HCPCS: 11043; A6209 ×2 ==

== ENCOUNTER 2020-04-27 09:29 | Outpatient (CLI) | payer MEDICARE, OTHER ==
[2020-04-27 10:52] LABS: BASOPHILS % (AUTO) 0.1 % (0.0-2.0); HEMATOCRIT 34 % (33-45); HEMOGLOBIN 11.1 g/dL (11.5-14.8); LYMPHOCYTES # (AUTO) 1.8 /CMM (0.8-4.8); MEAN CORPUSCULAR HGB CONC 33 g/dl (31.0-36.0); MEAN CORPUSCULAR VOLUME 94 fL (82-100); MONOCYTES # (AUTO) 0.7 /CMM (0.1-1.30); MONOCYTES % (AUTO) 11.1 % (2.0-12.0); NEUTROPHILS # (AUTO) 3.4 /CMM (1.8-8.9); NEUTROPHILS % (AUTO) 57.8 % (43.0-81.0); PLATELET COUNT (AUTO) 429 /CMM (150-450); RED BLOOD CELL COUNT(AUTO) 3.57 MIL/uL (4.0-5.2); WHITE BLOOD COUNT (AUTO) 5.9 K/uL (4.3-11.0)
[2020-04-27 11:08] LABS: APPEARANCE,URINE SL CLOUDY (CLEAR); BILIRUBIN,URINE NEGATIVE (NEGATIVE); BLOOD, URINE NEGATIVE Ery/uL (NEGATIVE); COLOR,URINE YELLOW (YELLOW); KETONES,URINE NEGATIVE (NEGATIVE); LEUKOCYTE ESTERASE ,URINE NEGATIVE (NEGATIVE); NITRITE, URINE NEGATIVE (NEGATIVE); PROTEIN,URINE 30 mg/dl (NEGATIVE); UGLUCOSE NEGATIVE (NEGATIVE); UROBILINOGEN,URINE 0.2 EU/dL (0.2)
[2020-04-27 11:18] LABS: ALANINE AMINOTRANSFERASE 40 U/L (12-78); ALBUMIN 3.5 g/dL (3.4-5.0); ALKALINE PHOSPHATASE 395 U/L (46-116); ASPARTATE AMINOTRANSFERASE 38 U/L (15-37); BILIRUBIN,DIRECT 0.1 mg/dL (0.0-0.2); BILIRUBIN,TOTAL 0.3 mg/dL (0.2-1.0); CALCIUM, SERUM 9.3 mg/dL (8.5-10.1); CARBON DIOXIDE 27 mmol/L (21-32); CHLORIDE 99 mmol/L (98-107); CREATININE 1.9 mg/dL (0.6-1.3); GLUCOSE 96 mg/dL (74-106); IRON, SERUM 81 ug/dl (50-175); POTASSIUM 4.7 mmol/L (3.5-5.1); SODIUM SERUM 136 mmol/L (136-145); TOTAL IRON BINDING CAPACITY 332 ug/dl (250-450); TOTAL PROTEIN, SERUM 8.9 g/dL (6.4-8.2); UREA NITROGEN, BLOOD 41 mg/dL (7-18)
[2020-04-27 11:25] LABS: CHOLESTEROL 200 mg/dL (<200); HDL CHOLESTEROL 33 mg/dL (40-60); LDL 128 mg/dL (0-99); TRIGLYCERIDES 227 mg/dL (30-150)
[2020-04-27 11:51] LABS: FERRITIN 182 ng/mL (8-388); THYROID STIMULATING HORMONE 1.533 uIU/mL (0.358-3.74)
[2020-04-27 12:00] LABS: RBC,URINE 0-2 /HPF (0-2); WBC,URINE 0-2 /HPF (0-3)
[2020-04-27 12:01] LABS: BACTERIA,URINE None seen /HPF (None Seen); SQUAMOUS EPITHELIAL CELL,UR Moderate /HPF (None Seen)
== END 2020-04-27 23:59 | disposition home or self-care (01) ==
LOC: LAB 09:29
PROVIDERS: ATTEND Internal Medicine
DX: E11.9 Type 2 diabetes mellitus without complications (principal); Z00.00 Encounter for general adult medical examination without abnormal findings
CPT/HCPCS: 36415; 80053-TC; 80061-TC; 80076-TC; 81000-TC; 82728-TC; 83540-TC; 84439-TC; 84443-TC; 84480; 85025-TC

== ENCOUNTER 2020-04-29 12:06 | Outpatient (CLI) | payer MEDICARE, OTHER | END 2020-04-29 23:59 | disposition home or self-care (01) | LOC: MRI 12:06 | PROVIDERS: ATTEND Podiatrist Foot & Ankle Surgery | DX: M86.8X7 Other osteomyelitis, ankle and foot (principal); M12.871 Other specific arthropathies, not elsewhere classified, right ankle and foot; M79.89 Other specified soft tissue disorders | CPT/HCPCS: 73718-TC ==

== ENCOUNTER 2020-04-29 12:45 | Outpatient (CLI) | payer MEDICARE, OTHER | END 2020-04-29 23:59 | disposition home health service (06) | LOC: WOU 12:45 | PROVIDERS: ATTEND Podiatrist Foot & Ankle Surgery | DX: E11.621 Type 2 diabetes mellitus with foot ulcer (principal); L97.515 Non-pressure chronic ulcer of other part of right foot with muscle involvement without evidence of necrosis; E11.42 Type 2 diabetes mellitus with diabetic polyneuropathy; E11.51 Type 2 diabetes mellitus with diabetic peripheral angiopathy without gangrene; E11.69 Type 2 diabetes mellitus with other specified complication; M86.471 Chronic osteomyelitis with draining sinus, right ankle and foot; Z79.4 Long term (current) use of insulin; M24.574 Contracture, right foot; Z79.82 Long term (current) use of aspirin | CPT/HCPCS: A6407; G0463 ==

== ENCOUNTER 2020-05-03 15:03 | Outpatient (CLI) | payer MEDICARE, OTHER ==
[2020-06-12] MEDS ORDERED: PANT40TA2 PO (15:38)
== END 2020-05-03 23:59 | disposition home health service (06) ==
LOC: WOU 15:03
PROVIDERS: ATTEND Podiatrist Foot & Ankle Surgery
DX: E11.621 Type 2 diabetes mellitus with foot ulcer (principal); L97.518 Non-pressure chronic ulcer of other part of right foot with other specified severity; E11.42 Type 2 diabetes mellitus with diabetic polyneuropathy; E11.51 Type 2 diabetes mellitus with diabetic peripheral angiopathy without gangrene; E11.69 Type 2 diabetes mellitus with other specified complication; M86.471 Chronic osteomyelitis with draining sinus, right ankle and foot; Z79.4 Long term (current) use of insulin; Z79.82 Long term (current) use of aspirin
CPT/HCPCS: A6209; G0463

== ENCOUNTER 2020-05-10 12:45 | Outpatient (CLI) | payer MEDICARE, OTHER | END 2020-05-10 23:59 | disposition home health service (06) | LOC: WOU 12:45 | PROVIDERS: ATTEND Podiatrist Foot & Ankle Surgery | DX: E11.621 Type 2 diabetes mellitus with foot ulcer (principal); L97.519 Non-pressure chronic ulcer of other part of right foot with unspecified severity; E11.42 Type 2 diabetes mellitus with diabetic polyneuropathy; E11.51 Type 2 diabetes mellitus with diabetic peripheral angiopathy without gangrene; E11.69 Type 2 diabetes mellitus with other specified complication; M86.471 Chronic osteomyelitis with draining sinus, right ankle and foot; Z79.4 Long term (current) use of insulin; Z79.82 Long term (current) use of aspirin | CPT/HCPCS: A6209; G0463 ==

== ENCOUNTER 2020-05-13 15:10 | Outpatient (CLI) | payer MEDICARE, OTHER | END 2020-05-13 23:59 | disposition home health service (06) | LOC: WOU 15:10 | PROVIDERS: ATTEND Podiatrist Foot & Ankle Surgery | DX: E11.621 Type 2 diabetes mellitus with foot ulcer (principal); L97.518 Non-pressure chronic ulcer of other part of right foot with other specified severity; E11.51 Type 2 diabetes mellitus with diabetic peripheral angiopathy without gangrene; E11.42 Type 2 diabetes mellitus with diabetic polyneuropathy; E11.69 Type 2 diabetes mellitus with other specified complication; M86.471 Chronic osteomyelitis with draining sinus, right ankle and foot; Z79.4 Long term (current) use of insulin; M24.574 Contracture, right foot; Z79.82 Long term (current) use of aspirin | CPT/HCPCS: A6209; G0463 ==

== ENCOUNTER 2020-05-20 14:15 | Outpatient (CLI) | payer MEDICARE, OTHER ==
[2020-06-12] MEDS ORDERED: PANT40TA2 PO (15:38)
== END 2020-05-20 23:59 | disposition home health service (06) ==
LOC: WOU 14:15
PROVIDERS: ATTEND Podiatrist Foot & Ankle Surgery
DX: E11.621 Type 2 diabetes mellitus with foot ulcer (principal); L97.512 Non-pressure chronic ulcer of other part of right foot with fat layer exposed; E11.42 Type 2 diabetes mellitus with diabetic polyneuropathy; E11.51 Type 2 diabetes mellitus with diabetic peripheral angiopathy without gangrene; E11.69 Type 2 diabetes mellitus with other specified complication; M86.471 Chronic osteomyelitis with draining sinus, right ankle and foot; Z79.4 Long term (current) use of insulin; Z79.82 Long term (current) use of aspirin; M24.574 Contracture, right foot
CPT/HCPCS: 11042

== ENCOUNTER 2020-05-25 15:30 | Outpatient (CLI) | payer MEDICARE, OTHER | END 2020-05-25 23:59 | disposition home health service (06) | LOC: WOU 15:30 | PROVIDERS: ATTEND Specialist | DX: E11.621 Type 2 diabetes mellitus with foot ulcer (principal); L97.512 Non-pressure chronic ulcer of other part of right foot with fat layer exposed; E11.42 Type 2 diabetes mellitus with diabetic polyneuropathy; E11.69 Type 2 diabetes mellitus with other specified complication; M86.471 Chronic osteomyelitis with draining sinus, right ankle and foot; Z79.4 Long term (current) use of insulin; Z79.82 Long term (current) use of aspirin | CPT/HCPCS: G0463 ==

== ENCOUNTER 2020-05-31 12:11 | Outpatient (CLI) | payer MEDICARE, OTHER | END 2020-05-31 23:59 | disposition home or self-care (01) | LOC: MSC 12:11 | PROVIDERS: ATTEND Internal Medicine | DX: E11.65 Type 2 diabetes mellitus with hyperglycemia (principal); E11.69 Type 2 diabetes mellitus with other specified complication; M86.9 Osteomyelitis, unspecified; Z79.4 Long term (current) use of insulin; I12.9 Hypertensive chronic kidney disease with stage 1 through stage 4 chronic kidney disease, or unspecified chronic kidney disease; E11.22 Type 2 diabetes mellitus with diabetic chronic kidney disease; N18.9 Chronic kidney disease, unspecified; Z86.79 Personal history of other diseases of the circulatory system; H81.10 Benign paroxysmal vertigo, unspecified ear; G89.29 Other chronic pain; M54.9 Dorsalgia, unspecified; D64.89 Other specified anemias; M85.80 Other specified disorders of bone density and structure, unspecified site ==

== ENCOUNTER 2020-05-31 13:20 | Outpatient (CLI) | payer MEDICARE, OTHER | END 2020-05-31 23:59 | disposition home health service (06) | LOC: WOU 13:20 | PROVIDERS: ATTEND Podiatrist Foot & Ankle Surgery | DX: E11.42 Type 2 diabetes mellitus with diabetic polyneuropathy (principal); E11.51 Type 2 diabetes mellitus with diabetic peripheral angiopathy without gangrene; E11.69 Type 2 diabetes mellitus with other specified complication; M86.471 Chronic osteomyelitis with draining sinus, right ankle and foot; M24.574 Contracture, right foot; Z79.4 Long term (current) use of insulin; Z79.82 Long term (current) use of aspirin | CPT/HCPCS: G0463 ==

== ENCOUNTER 2020-06-10 23:38 | Inpatient (IN) | payer OTHER, MEDICARE ==
[~2020-06-10] VITALS: Ht 154.9 cm; Wt 61.2 kg
--- NOTE | 2020-06-10 23:47 | NUR ---
PT PRESENTED TO THE ER WITH A C/O LEFT SIDED ABD PAIN THAT STARTED AT 4PM. BLOODY STOOLS W/ MUCOUS NOTED AT 7PM TODAY. PT AMBULATED TO THE BATHROOM WITH A STEADY GAIT.
--- NOTE | 2020-06-10 23:47 | NUR ---
PT'S DAUGHTER IS WITH THE PT. PT IS CHINESE SPEAKING ONLY. PT'S DAUGHTER IS TRANSLATING FOR THE PT. PT APPEARS NERVOUS.
--- NOTE | 2020-06-10 23:50 | NUR ---
URINE SAMPLE IS OBTAINED.
--- NOTE | 2020-06-10 23:55 | NUR ---
DR MACARIO IS AT THE BEDSIDE EVALUATING THE PT. RECTAL EXAM WAS DONE BY DR MACARIO. TEST SENT TO LAB.
[2020-06-11] VITALS (7 sets, daily range): BP systolic 126–172; BP diastolic 67–86
[2020-06-11] MEDS ORDERED: ONDANSETRON HCL/PF 4 MG/2 ML VIAL IVP ONE
[2020-06-11] MEDS ORDERED: IV NS 0.9% 500 ML BAG IV ONE
--- NOTE | 2020-06-11 00:01 | NUR ---
PT REFUSED ZOFRAN.
--- NOTE | 2020-06-11 00:16 | NUR ---
IV STARTED IN RT HAND.
[2020-06-11 00:18] LABS: BASOPHILS # (AUTO) 0.1 /CMM (0.0-0.2); BASOPHILS % (AUTO) 0.5 % (0.0-2.0); HEMATOCRIT 34 % (33-45); HEMOGLOBIN 11.4 g/dL (11.5-14.8); LYMPHOCYTES # (AUTO) 2.6 /CMM (0.8-4.8); LYMPHOCYTES % (AUTO) 22.2 % (20.0-44.0); MEAN CORPUSCULAR HGB CONC 33 g/dl (31.0-36.0); MEAN CORPUSCULAR VOLUME 94 fL (82-100); MONOCYTES # (AUTO) 0.8 /CMM (0.1-1.30); MONOCYTES % (AUTO) 7.1 % (2.0-12.0); NEUTROPHILS # (AUTO) 8.3 /CMM (1.8-8.9); NEUTROPHILS % (AUTO) 70.2 % (43.0-81.0); PLATELET COUNT (AUTO) 412 /CMM (150-450); RED BLOOD CELL COUNT(AUTO) 3.65 MIL/uL (4.0-5.2); WHITE BLOOD COUNT (AUTO) 11.9 K/uL (4.3-11.0)
[2020-06-11] MEDS ORDERED: ONDANSETRON HCL/PF 4 MG/2 ML VIAL ONE (00:22)
[2020-06-11 00:56] LABS: ALANINE AMINOTRANSFERASE 21 U/L (12-78); ALBUMIN 3.6 g/dL (3.4-5.0); ALKALINE PHOSPHATASE 204 U/L (46-116); ASPARTATE AMINOTRANSFERASE 22 U/L (15-37); BILIRUBIN,TOTAL 0.1 mg/dL (0.2-1.0); CARBON DIOXIDE 21 mmol/L (21-32); CHLORIDE 101 mmol/L (98-107); CREATININE 1.5 mg/dL (0.6-1.3); GLUCOSE 201 mg/dL (74-106); LIPASE 373 U/L (73-393); POTASSIUM 4.2 mmol/L (3.5-5.1); SODIUM SERUM 133 mmol/L (136-145); TOTAL PROTEIN, SERUM 8.8 g/dL (6.4-8.2); UREA NITROGEN, BLOOD 36 mg/dL (7-18)
--- NOTE | 2020-06-11 00:57 | NUR ---
FAX VERBAL AUTH: CRUZ
[2020-06-11] MEDS ORDERED: MORPHINE SULFATE INJ 2 MG/ML DISP.SYRIN IV ONE (01:00)
--- NOTE | 2020-06-11 01:01 | NUR ---
PT REFUSED MORHPHINE. PT STATED THAT HER PAIN WAS 3/10 AND TOLERABLE. PT'S DAUGHTER STATED THAT THE PT IS NERVOUS.
[2020-06-11] MEDS ORDERED: hydrALAZINE HCL IV 20 MG VIAL ONE (01:05)
--- NOTE | 2020-06-11 01:05 | NUR ---
PT'S BP IS ELEVATED MD NOTIFIED. NEW ORDERS GIVEN.
[2020-06-11] MEDS ORDERED: hydrALAZINE HCL IV 20 MG VIAL IV ONE (01:30)
--- NOTE | 2020-06-11 01:36 | NUR ---
PT IS GOING TO TELE 326
--- NOTE | 2020-06-11 01:38 | NUR ---
Frida lewis in [facility] - 06/11/20 at 0147 by VALDEZ BED ASSIGNMENT [id number]
[2020-06-11] MEDS ORDERED: CARV12.5 PO (01:45)
[2020-06-11] MEDS ORDERED: CALC1POW43 PO (01:45)
[2020-06-11] MEDS ORDERED: VIT1TABL46 PO (01:45)
--- NOTE | 2020-06-11 02:30 | NUR ---
RN NOTES ADMITTED PATIENT FROM ED DUE TO GI BLEED MANIFESTED BY BLOODY STOOL AND POSITIVE OCCULT BLOOD, ALERT AND ORIENTED X4, ROOM AIR, DENIES PAIN AT THIS TIME, NO EPIGASTRIC PAIN, AMBULATORY, LUNG SOUNDS ARE CLEAR, SKIN INTACT, RIGHT BIG TOE WOUND HEALING, SECURED WITH DRY DRESSING, PHOTO TAKEN, AWAITING ADMISSION ORDERS.
[2020-06-11] MEDS: BLOOD SUGAR DIAGNOSTIC 1 EACH STRIP IN SCH ×5 (06:26→21:21)
[2020-06-11] MEDS: IV NS 0.9% 1,000 ML IV PRN ×2 (06:27→22:00)
[2020-06-11] MEDS ORDERED: Z GUARD REMEDY 2 OZ OINT TP PRN (06:30)
[2020-06-11] MEDS ORDERED: ACETAMINOPHEN 325 MG TABLET PO PRN (06:30)
[2020-06-11] MEDS ORDERED: ONDANSETRON HCL/PF 4 MG/2 ML VIAL IVP PRN (06:30)
--- NOTE | 2020-06-11 06:43 | NUR ---
RN NOTES ALERT AND ORIENTED X4, STABLE ON ROOM AIR, GI BLEED, NOTED SCANT BLOOD IN DIAPER, NO ADMISSION ORDERS YET, BP ELEVATED, NOTIFIED DR. PHAN, CONTINUE HOME BP MEDS, FULL LIQUID DIET, NS AT 75ML/HR, ACCUCHECK Q4HRS WITHOUT COVERAGE, SCD, NO CHEMICAL VTE DUE TO GI BLEED.
[2020-06-11] MEDS: METOCLOPRAMIDE HCL 10 MG/2 ML VIAL IV SCH ×4 (06:52→23:50)
[2020-06-11] MEDS ORDERED: CEFTRIAXONE 1 G in IV D5W 50 ML IV SCH (07:00)
[2020-06-11 08:11] LABS: BASOPHILS % (AUTO) 0.2 % (0.0-2.0); HEMATOCRIT 33 % (33-45); HEMOGLOBIN 11.1 g/dL (11.5-14.8); LYMPHOCYTES # (AUTO) 2.2 /CMM (0.8-4.8); LYMPHOCYTES % (AUTO) 19.1 % (20.0-44.0); MEAN CORPUSCULAR HGB CONC 33 g/dl (31.0-36.0); MEAN CORPUSCULAR VOLUME 93 fL (82-100); MONOCYTES # (AUTO) 0.7 /CMM (0.1-1.30); MONOCYTES % (AUTO) 5.9 % (2.0-12.0); NEUTROPHILS # (AUTO) 8.5 /CMM (1.8-8.9); NEUTROPHILS % (AUTO) 74.8 % (43.0-81.0); PLATELET COUNT (AUTO) 382 /CMM (150-450); RED BLOOD CELL COUNT(AUTO) 3.58 MIL/uL (4.0-5.2); WHITE BLOOD COUNT (AUTO) 11.4 K/uL (4.3-11.0)
[2020-06-11] MEDS: FUROSEMIDE 40 MG TABLET PO SCH (08:38)
[2020-06-11] MEDS: AMLODIPINE BESYLATE 5 MG TABLET PO SCH (08:39)
[2020-06-11] MEDS: PANTOPRAZOLE 40 MG VIAL IV SCH ×2 (08:39→21:13)
[2020-06-11] MEDS: CARVEDILOL 12.5 MG TABLET PO SCH ×3 (08:39→17:50)
[2020-06-11] MEDS: INSULIN LISPRO/ASPART 100 UNIT/ML CARTRIDGE SQ SCH ×3 (08:41→17:30)
[2020-06-11] MEDS: METRONIDAZOLE 500MG/ NS 100ML 500 MG in PREMIX 1 EA IV SCH ×3 (08:46→21:13)
[2020-06-11 09:14] LABS: CALCIUM, SERUM 8.9 mg/dL (8.5-10.1); CARBON DIOXIDE 19 mmol/L (21-32); CHLORIDE 105 mmol/L (98-107); CREATININE 1.2 mg/dL (0.6-1.3); GLUCOSE 136 mg/dL (74-106); MAGNESIUM 2.2 mg/dL (1.8-2.4); PHOSPHORUS 3.4 mg/dL (2.5-4.9); POTASSIUM 4.1 mmol/L (3.5-5.1); SODIUM SERUM 136 mmol/L (136-145); UREA NITROGEN, BLOOD 30 mg/dL (7-18)
[2020-06-11] MEDS: LOSARTAN POTASSIUM 50 MG TABLET PO SCH (09:44)
[2020-06-11] MEDS: INSULIN NPH, HUMAN ISOPHANE 100 UNIT/ML CARTRIDGE SQ SCH ×2 (10:18→17:38)
[2020-06-11] MEDS: CEFTRIAXONE 1 G in IV D5W 50 ML IV SCH (10:19)
--- NOTE | 2020-06-11 16:31 | NUR ---
pt. status quo,no complaints.
--- NOTE | 2020-06-11 17:30 | NUR ---
bgl checked x3 readings 41,44,45.oj given with 3 sugar pkts.pt. sluggish but alert.
--- NOTE | 2020-06-11 17:40 | NUR ---
given dinner.ate 100%.
--- NOTE | 2020-06-11 18:27 | NUR ---
blood sugar rechecked and now 169.sitting up in bed and brighter and more alert.
--- NOTE | 2020-06-11 20:00 | NUR ---
RN NOTES RECEIVED PATIENT IN BED, ALERT AND ORIENTED X4, ON ROOM AIR, EPIGASTRIC DISCOMFORT, DENIES N/V, FULL LIQUID DIET, NO REPORT OF RECTAL BLEED, HAD COLD MILL SUPERVISOR CHANGED DIAPER, WITH SCANT BLOOD ON DIAPER. KEPT SAFE, WILL CONTINUE TO MONITOR.
[2020-06-12] MEDS: BLOOD SUGAR DIAGNOSTIC 1 EACH STRIP IN SCH ×5 (00:37→17:25)
[2020-06-12] MEDS: METRONIDAZOLE 500MG/ NS 100ML 500 MG in PREMIX 1 EA IV SCH ×2 (05:01→13:00)
--- NOTE | 2020-06-12 06:24 | NUR ---
RN NOTES PM SHIFT ALERT AND ORIENTED X4, ROOM AIR, EPIGASTRIC DISCOMFORT, PROTONIX AND REGLAN GIVEN SCHEDULED, FLAGYL IV, ACCUCHECK Q4HRS WITHOUT SLIDING SCALE, NUTRITIONAL INSULIN BEFORE BREAKFAST, NO RECTAL BLEED, HAD X2 BM, VOIDING SPONTANEOUSLY, NO HEMATURIA, PENDING ECHO, MONITOR H/H.
[2020-06-12] MEDS: METOCLOPRAMIDE HCL 10 MG/2 ML VIAL IV SCH ×3 (06:28→17:35)
[2020-06-12] MEDS: INSULIN LISPRO/ASPART 100 UNIT/ML CARTRIDGE SQ SCH ×3 (06:42→17:26)
[2020-06-12 07:00] LABS: BASOPHILS % (AUTO) 0.1 % (0.0-2.0); HEMATOCRIT 32 % (33-45); HEMOGLOBIN 10.5 g/dL (11.5-14.8); LYMPHOCYTES # (AUTO) 0.8 /CMM (0.8-4.8); LYMPHOCYTES % (AUTO) 8.3 % (20.0-44.0); MEAN CORPUSCULAR HGB CONC 33 g/dl (31.0-36.0); MEAN CORPUSCULAR VOLUME 94 fL (82-100); MONOCYTES # (AUTO) 0.6 /CMM (0.1-1.30); MONOCYTES % (AUTO) 6.3 % (2.0-12.0); NEUTROPHILS % (AUTO) 85.3 % (43.0-81.0); PLATELET COUNT (AUTO) 353 /CMM (150-450); RED BLOOD CELL COUNT(AUTO) 3.38 MIL/uL (4.0-5.2); WHITE BLOOD COUNT (AUTO) 9.3 K/uL (4.3-11.0)
[2020-06-12 07:01] LABS: CALCIUM, SERUM 8.6 mg/dL (8.5-10.1); CARBON DIOXIDE 20 mmol/L (21-32); CHLORIDE 106 mmol/L (98-107); CREATININE 1.5 mg/dL (0.6-1.3); GLUCOSE 166 mg/dL (74-106); MAGNESIUM 2.1 mg/dL (1.8-2.4); PHOSPHORUS 3.9 mg/dL (2.5-4.9); POTASSIUM 3.9 mmol/L (3.5-5.1); SODIUM SERUM 136 mmol/L (136-145); UREA NITROGEN, BLOOD 26 mg/dL (7-18)
--- NOTE | 2020-06-12 07:05 | NUR ---
MS RN NOTES RECEIVE PATIENT IN BED ASLEEP, AROUSABLE TO VERBAL AND TACTILE STIMULI. HOB ELEVATED. DENIES ANY C/O PAIN NOR DISCOMFORT AT THIS TIME. PER PATIENT, DENIES ANY BLEEDING FROM STOOL. RIGHT HAND # 20 INTACT AND PATENT INFUSING NS AT 75ML/HR JESSICA WELL. ABLE TO VERBALIZE NEEDS. BED IN LOWEST POSITION ,.LOCKED. BED ALARM, ON. CALL LIGHT WITHIN REACH.
[2020-06-12 07:21] LABS: IRON, SERUM 88 ug/dl (50-175); TOTAL IRON BINDING CAPACITY 242 ug/dl (250-450)
[2020-06-12 07:54] LABS: CHOLESTEROL 165 mg/dL (<200); HDL CHOLESTEROL 39 mg/dL (40-60); LDL 101 mg/dL (0-99); THYROID STIMULATING HORMONE 2.062 uIU/mL (0.358-3.74); TRIGLYCERIDES 151 mg/dL (30-150)
[2020-06-12 08:18] VITALS: BP 154/79
[2020-06-12] MEDS: CEFTRIAXONE 1 G in IV D5W 50 ML IV SCH (08:52)
[2020-06-12] MEDS: PANTOPRAZOLE 40 MG VIAL IV SCH (09:46)
[2020-06-12] MEDS: LOSARTAN POTASSIUM 50 MG TABLET PO SCH (09:49)
[2020-06-12] MEDS: AMLODIPINE BESYLATE 5 MG TABLET PO SCH (09:49)
[2020-06-12] MEDS: FUROSEMIDE 40 MG TABLET PO SCH (09:49)
[2020-06-12] MEDS: CARVEDILOL 12.5 MG TABLET PO SCH ×3 (09:49→17:00)
[2020-06-12] MEDS: INSULIN NPH, HUMAN ISOPHANE 100 UNIT/ML CARTRIDGE SQ SCH ×2 (09:57→17:26)
[2020-06-12] MEDS ORDERED: PANT40TA2 PO (15:38)
[2020-06-12 16:40] VITALS: BP 96/54
[2020-06-12 17:00] VITALS: BP 98/68
--- NOTE | 2020-06-12 17:25 | NUR ---
MS RN NOTES HELD COREG BP 98/62AND INSULIN NPH AND HUMULIN BS 77MG/DL.
--- NOTE | 2020-06-12 19:24 | NUR ---
MS RN NOTES PATIENT FOR DISCHARGE, DISCHARGE PACKET GIVEN AND INSTRUCTIONS DISCUSSED WITH PATIENT AND WITH ORLIN HERRON VIA TELEPHONE. NO S/S OF RESPIRATORY DISTRESS. AMBULATORY WITH STEADY GAIT. DENIES ANY C/O PAIN NOR DISCOMFORT AT THIS TIME. IV ACCESS REMOVED WITH CATHETER TIP INTACT AND DRESSING IN PLACE. ALL BELONGINGS ACCOUNTED FOR. PATIENT PICKED UP BY ORLIN HERRON AND LEFT IN STABLE CONDITION.
== END 2020-06-12 19:25 | disposition home or self-care (01) | DRG 253 ==
LOC: ER 23:44 → MED 06-11 01:37 → TELE 06-11 02:18 → MED 06-11 08:49
PROVIDERS: ADMIT Student in an Organized Health Care Education/Training Program; ATTEND Student in an Organized Health Care Education/Training Program
DX: K92.2 Gastrointestinal hemorrhage, unspecified (principal); N17.0 Acute kidney failure with tubular necrosis; I12.9 Hypertensive chronic kidney disease with stage 1 through stage 4 chronic kidney disease, or unspecified chronic kidney disease; E11.22 Type 2 diabetes mellitus with diabetic chronic kidney disease; E11.69 Type 2 diabetes mellitus with other specified complication; D63.8 Anemia in other chronic diseases classified elsewhere; G89.29 Other chronic pain; H81.10 Benign paroxysmal vertigo, unspecified ear; M85.80 Other specified disorders of bone density and structure, unspecified site; M86.9 Osteomyelitis, unspecified; N18.9 Chronic kidney disease, unspecified; Z79.4 Long term (current) use of insulin; Z79.82 Long term (current) use of aspirin; Z79.899 Other long term (current) drug therapy; Z83.3 Family history of diabetes mellitus; N25.0 Renal osteodystrophy
CPT/HCPCS: 36415; 71045-TC; 80048-TC; 80061-TC; 80076-TC; 82962-TC; 83540-TC; 83690-TC; 83735-TC; 84100-TC; 84443-TC; 84484-TC; 85025-TC; 85730-TC; 86850-TC; 87081-TC; 93307-TC; A4216; C9113; G0378; J0360; J0696; J1815; J2405; J2765; J7030; J7040; J7060

== ENCOUNTER 2020-06-14 13:00 | Outpatient (CLI) | payer MEDICARE, OTHER ==
[~2020-06-14 13:00] MED LIST changes: +CALC1POW43 PO; +CARV12.5 PO; +PANT40TA2 PO; +VIT1TABL46 PO
== END 2020-06-14 23:59 | disposition home health service (06) ==
LOC: WOU 13:00
PROVIDERS: ATTEND Podiatrist Foot & Ankle Surgery
DX: Z09 Encounter for follow-up examination after completed treatment for conditions other than malignant neoplasm (principal); Z86.31 Personal history of diabetic foot ulcer; E11.42 Type 2 diabetes mellitus with diabetic polyneuropathy; E11.51 Type 2 diabetes mellitus with diabetic peripheral angiopathy without gangrene; E11.69 Type 2 diabetes mellitus with other specified complication; M86.471 Chronic osteomyelitis with draining sinus, right ankle and foot; M24.574 Contracture, right foot; Z79.4 Long term (current) use of insulin; Z79.82 Long term (current) use of aspirin
CPT/HCPCS: G0463

== ENCOUNTER 2020-06-14 13:06 | Outpatient (CLI) | payer OTHER, MEDICARE | END 2020-06-14 23:59 | disposition home or self-care (01) | LOC: MSC 13:06 | PROVIDERS: ATTEND Internal Medicine | DX: K62.5 Hemorrhage of anus and rectum (principal); Z87.19 Personal history of other diseases of the digestive system; E11.22 Type 2 diabetes mellitus with diabetic chronic kidney disease; I12.9 Hypertensive chronic kidney disease with stage 1 through stage 4 chronic kidney disease, or unspecified chronic kidney disease; N18.9 Chronic kidney disease, unspecified; Z79.4 Long term (current) use of insulin; M86.9 Osteomyelitis, unspecified; H81.10 Benign paroxysmal vertigo, unspecified ear; G89.29 Other chronic pain; M54.9 Dorsalgia, unspecified; D64.9 Anemia, unspecified; M85.80 Other specified disorders of bone density and structure, unspecified site; Z86.79 Personal history of other diseases of the circulatory system; Z79.899 Other long term (current) drug therapy ==

== ENCOUNTER 2020-06-27 13:10 | Outpatient (CLI) | payer MEDICARE, OTHER | END 2020-06-27 23:59 | disposition home or self-care (01) | LOC: MSC 13:10 | PROVIDERS: ATTEND Internal Medicine | DX: I12.9 Hypertensive chronic kidney disease with stage 1 through stage 4 chronic kidney disease, or unspecified chronic kidney disease (principal); E11.22 Type 2 diabetes mellitus with diabetic chronic kidney disease; N18.9 Chronic kidney disease, unspecified; Z79.4 Long term (current) use of insulin; E11.621 Type 2 diabetes mellitus with foot ulcer; L97.509 Non-pressure chronic ulcer of other part of unspecified foot with unspecified severity; Q78.9 Osteochondrodysplasia, unspecified; K92.1 Melena; Z79.899 Other long term (current) drug therapy ==

== ENCOUNTER 2022-02-14 13:50 | Outpatient (CLI) | payer MEDICARE, OTHER ==
[~2022-02-14 13:50] MED LIST changes: +AMLO-212 PO; -AMLO5TAB9 PO
[2022-02-14] MEDS ORDERED: SILVER NITRATE APPLICATOR 1 EA BOX ONE (14:37)
== END 2022-02-14 23:59 | disposition home or self-care (01) ==
LOC: WOU 13:50
PROVIDERS: ATTEND Podiatrist Foot & Ankle Surgery
DX: L60.0 Ingrowing nail (principal); E11.42 Type 2 diabetes mellitus with diabetic polyneuropathy; E11.51 Type 2 diabetes mellitus with diabetic peripheral angiopathy without gangrene; M20.42 Other hammer toe(s) (acquired), left foot; M20.41 Other hammer toe(s) (acquired), right foot; M24.574 Contracture, right foot; Z86.31 Personal history of diabetic foot ulcer
CPT/HCPCS: 82962; G0463

== ENCOUNTER → 2022-02-16 | Outpatient (CLI) | payer MEDICARE, OTHER | END | disposition home or self-care (01) | LOC: RAD 13:24 | PROVIDERS: ATTEND Podiatrist Foot & Ankle Surgery | DX: M19.072 Primary osteoarthritis, left ankle and foot (principal); M19.071 Primary osteoarthritis, right ankle and foot; M21.42 Flat foot [pes planus] (acquired), left foot; M21.41 Flat foot [pes planus] (acquired), right foot; M77.32 Calcaneal spur, left foot; M77.31 Calcaneal spur, right foot; M20.12 Hallux valgus (acquired), left foot; M85.871 Other specified disorders of bone density and structure, right ankle and foot | CPT/HCPCS: 73630-TC ==

== ENCOUNTER 2022-02-21 13:50 | Outpatient (CLI) | payer MEDICARE, OTHER ==
[2022-02-21 15:13] LABS: BASOPHILS % (AUTO) 0.5 % (0.0-2.0); EOSINOPHILS % (AUTO) 7.5 % (0.0-6.0); HEMATOCRIT 32 % (33-45); HEMOGLOBIN 10.4 g/dL (11.5-14.8); LYMPHOCYTES # (AUTO) 2.1 K/uL (0.8-4.8); MEAN CORPUSCULAR HGB CONC 33 g/dl (31.0-36.0); MEAN CORPUSCULAR VOLUME 95 fL (82-100); MONOCYTES # (AUTO) 0.7 K/uL (0.1-1.30); MONOCYTES % (AUTO) 7.4 % (2.0-12.0); NEUTROPHILS # (AUTO) 5.4 K/uL (1.8-8.9); NEUTROPHILS % (AUTO) 60.6 % (43.0-81.0); PLATELET COUNT (AUTO) 495 K/uL (150-450); RED BLOOD CELL COUNT(AUTO) 3.36 MIL/uL (4.0-5.2); WHITE BLOOD COUNT (AUTO) 8.8 K/uL (4.3-11.0)
== END 2022-02-21 23:59 | disposition home or self-care (01) ==
LOC: WOU 13:50
PROVIDERS: ATTEND Podiatrist Foot & Ankle Surgery
DX: E11.42 Type 2 diabetes mellitus with diabetic polyneuropathy (principal); E11.69 Type 2 diabetes mellitus with other specified complication; E11.51 Type 2 diabetes mellitus with diabetic peripheral angiopathy without gangrene; M86.471 Chronic osteomyelitis with draining sinus, right ankle and foot; M20.42 Other hammer toe(s) (acquired), left foot; M20.41 Other hammer toe(s) (acquired), right foot; Z79.4 Long term (current) use of insulin; M24.574 Contracture, right foot; L84 Corns and callosities; B35.1 Tinea unguium; Z79.82 Long term (current) use of aspirin
CPT/HCPCS: 36415; 84145; 85025; 85652; 86140; G0463

== ENCOUNTER 2022-02-28 14:00 | Outpatient (CLI) | payer MEDICARE, OTHER | END 2022-02-28 23:59 | disposition home health service (06) | LOC: WOU 14:00 | PROVIDERS: ATTEND Podiatrist Foot & Ankle Surgery | DX: L60.0 Ingrowing nail (principal); L60.3 Nail dystrophy; M20.42 Other hammer toe(s) (acquired), left foot; M20.41 Other hammer toe(s) (acquired), right foot; E11.42 Type 2 diabetes mellitus with diabetic polyneuropathy; E11.51 Type 2 diabetes mellitus with diabetic peripheral angiopathy without gangrene; Z79.4 Long term (current) use of insulin; B35.1 Tinea unguium; R60.0 Localized edema; Z79.82 Long term (current) use of aspirin | CPT/HCPCS: G0463 ==

== ENCOUNTER 2022-06-29 10:35 | Outpatient (CLI) | payer MEDICARE, OTHER | END 2022-06-29 23:59 | disposition home or self-care (01) | LOC: WOU 10:35 | PROVIDERS: ATTEND Podiatrist Foot & Ankle Surgery | DX: L60.0 Ingrowing nail (principal); E11.42 Type 2 diabetes mellitus with diabetic polyneuropathy; E11.51 Type 2 diabetes mellitus with diabetic peripheral angiopathy without gangrene; L60.3 Nail dystrophy; B35.1 Tinea unguium; R60.0 Localized edema; M20.42 Other hammer toe(s) (acquired), left foot; M20.41 Other hammer toe(s) (acquired), right foot; M24.574 Contracture, right foot; Z79.4 Long term (current) use of insulin; Z79.82 Long term (current) use of aspirin | CPT/HCPCS: 82962; G0463 ==

== ENCOUNTER 2022-08-22 14:35 | Outpatient (CLI) | payer MEDICARE, OTHER ==
[2022-08-22] MEDS ORDERED: UREA 10% -AHA 4% CREAM 57 GM TUBE ONE (14:56)
== END 2022-08-22 23:59 | disposition home or self-care (01) ==
LOC: WOU 14:35
PROVIDERS: ATTEND Podiatrist Foot & Ankle Surgery
DX: B35.1 Tinea unguium (principal); L60.3 Nail dystrophy; L60.0 Ingrowing nail; E11.42 Type 2 diabetes mellitus with diabetic polyneuropathy; E11.51 Type 2 diabetes mellitus with diabetic peripheral angiopathy without gangrene; Z79.4 Long term (current) use of insulin; M20.42 Other hammer toe(s) (acquired), left foot; M20.41 Other hammer toe(s) (acquired), right foot; M24.574 Contracture, right foot; Z79.82 Long term (current) use of aspirin
CPT/HCPCS: G0463

== ENCOUNTER 2022-12-12 15:00 | Outpatient (CLI) | payer MEDICARE, OTHER | END 2022-12-12 23:59 | disposition home or self-care (01) | LOC: WOU 15:00 | PROVIDERS: ATTEND Podiatrist Foot & Ankle Surgery | DX: L60.3 Nail dystrophy (principal); E11.42 Type 2 diabetes mellitus with diabetic polyneuropathy; E11.51 Type 2 diabetes mellitus with diabetic peripheral angiopathy without gangrene; E11.69 Type 2 diabetes mellitus with other specified complication; M86.471 Chronic osteomyelitis with draining sinus, right ankle and foot; B35.1 Tinea unguium; R60.0 Localized edema; M20.42 Other hammer toe(s) (acquired), left foot; M20.41 Other hammer toe(s) (acquired), right foot; M24.574 Contracture, right foot; Z79.4 Long term (current) use of insulin; Z79.82 Long term (current) use of aspirin | CPT/HCPCS: G0463 ==

== ENCOUNTER 2023-02-06 13:49 | Outpatient (CLI) | payer MEDICARE, OTHER | END 2023-02-06 23:59 | disposition home or self-care (01) | LOC: WOU 13:49 | PROVIDERS: ATTEND Podiatrist Foot & Ankle Surgery | DX: Z09 Encounter for follow-up examination after completed treatment for conditions other than malignant neoplasm (principal); E11.42 Type 2 diabetes mellitus with diabetic polyneuropathy; Z79.4 Long term (current) use of insulin; M20.42 Other hammer toe(s) (acquired), left foot; M20.41 Other hammer toe(s) (acquired), right foot; B35.1 Tinea unguium; L60.3 Nail dystrophy; M24.574 Contracture, right foot; R60.0 Localized edema; Z86.31 Personal history of diabetic foot ulcer; Z79.82 Long term (current) use of aspirin | CPT/HCPCS: G0463 ==

== ENCOUNTER 2023-04-03 14:00 | Outpatient (CLI) | payer MEDICARE, OTHER | END 2023-04-03 23:59 | disposition home or self-care (01) | LOC: WOU 14:00 | PROVIDERS: ATTEND Podiatrist Foot & Ankle Surgery | DX: L60.3 Nail dystrophy (principal); B35.1 Tinea unguium; E11.42 Type 2 diabetes mellitus with diabetic polyneuropathy; E11.51 Type 2 diabetes mellitus with diabetic peripheral angiopathy without gangrene; E11.69 Type 2 diabetes mellitus with other specified complication; M86.471 Chronic osteomyelitis with draining sinus, right ankle and foot; M20.42 Other hammer toe(s) (acquired), left foot; M20.41 Other hammer toe(s) (acquired), right foot; M24.574 Contracture, right foot; R60.0 Localized edema; Z79.4 Long term (current) use of insulin; Z79.82 Long term (current) use of aspirin | CPT/HCPCS: G0463 ==

== ENCOUNTER 2024-04-21 11:03 | Outpatient (CLI) | payer MEDICARE, OTHER ==
[2024-04-21] MEDS ORDERED: CADEXOMER IODINE UD 5 GM TUBE ONE (11:24)
== END 2024-04-21 23:59 | disposition home health service (06) ==
LOC: WOU 11:03
PROVIDERS: ATTEND Podiatrist Foot & Ankle Surgery
DX: E11.621 Type 2 diabetes mellitus with foot ulcer (principal); L97.512 Non-pressure chronic ulcer of other part of right foot with fat layer exposed; E11.42 Type 2 diabetes mellitus with diabetic polyneuropathy; Z79.4 Long term (current) use of insulin; L60.3 Nail dystrophy
CPT/HCPCS: 11042

== ENCOUNTER 2024-07-21 10:31 | Outpatient (CLI) | payer MEDICARE, OTHER ==
[2024-07-21] MEDS ORDERED: SILVER NITRATE APPLICATOR 1 EA BOX ONE (11:02)
== END 2024-07-21 23:59 | disposition home health service (06) ==
LOC: WOU 10:31
PROVIDERS: ATTEND Podiatrist Foot & Ankle Surgery
DX: E11.621 Type 2 diabetes mellitus with foot ulcer (principal); L97.522 Non-pressure chronic ulcer of other part of left foot with fat layer exposed; L97.512 Non-pressure chronic ulcer of other part of right foot with fat layer exposed; E11.42 Type 2 diabetes mellitus with diabetic polyneuropathy; M20.42 Other hammer toe(s) (acquired), left foot; M20.41 Other hammer toe(s) (acquired), right foot; L60.3 Nail dystrophy; Z79.4 Long term (current) use of insulin
CPT/HCPCS: 11042

== ENCOUNTER 2024-07-28 09:35 | Outpatient (CLI) | payer MEDICARE, OTHER | END 2024-07-28 23:59 | disposition home health service (06) | LOC: WOU 09:35 | PROVIDERS: ATTEND Podiatrist Foot & Ankle Surgery | DX: E11.621 Type 2 diabetes mellitus with foot ulcer (principal); L97.522 Non-pressure chronic ulcer of other part of left foot with fat layer exposed; L97.512 Non-pressure chronic ulcer of other part of right foot with fat layer exposed; E11.42 Type 2 diabetes mellitus with diabetic polyneuropathy; L60.3 Nail dystrophy; M20.42 Other hammer toe(s) (acquired), left foot; M20.41 Other hammer toe(s) (acquired), right foot; Z79.4 Long term (current) use of insulin | CPT/HCPCS: 11042 ==

== ENCOUNTER 2025-10-29 08:59 | Outpatient (CLI) | payer MEDICARE, OTHER ==
[2025-10-29] MEDS ORDERED: UREA 10% -AHA 4% CREAM 57 GM TUBE ONE (09:23)
== END 2025-10-29 23:59 | disposition home health service (06) ==
LOC: WOU 08:59
PROVIDERS: ATTEND Podiatrist Foot & Ankle Surgery
DX: E11.42 Type 2 diabetes mellitus with diabetic polyneuropathy (principal); L84 Corns and callosities; M20.42 Other hammer toe(s) (acquired), left foot; M20.41 Other hammer toe(s) (acquired), right foot; L60.3 Nail dystrophy; L60.0 Ingrowing nail; Z79.4 Long term (current) use of insulin
CPT/HCPCS: 11056; G0463